=== PATIENT | male | born 1945 | race Caucasian/White ===

== ENCOUNTER 2024-01-14 15:39 | Emergency (ER) | payer BC ==
[~2024-01-14] VITALS: Ht 162.6 cm; Wt 77.0 kg
[2024-01-14 15:44] VITALS: O2SAT 100
[2024-01-14] MEDS: SODIUM CHLORIDE 0.9% 1,000 ML IV ONE (16:21)
[2024-01-14 16:32] LABS: BASOPHILS % 0.7 % (0.0-2.0); EOSINOPHILS % 1.9 % (0.0-5.0); HEMATOCRIT. 43.4 % (42.0-52.0); HEMOGLOBIN. 15.3 g/dL (14.0-18.0); LYMPHOCYTES % 17.1 % (20.0-50.0); MEAN CORPUSCULAR HEMOGLOBIN 32.3 pg (28.0-32.0); MEAN CORPUSCULAR HGB CONC 35.2 g/dL (31.0-37.0); MEAN CORPUSCULAR VOLUME 91.8 fL (80.0-94.0); MEAN PLATELET VOLUME 8.3 fl (7.4-10.4); MONOCYTES % 6.5 % (2.0-8.0); NEUTROPHILS % 73.8 % (40.0-76.0); PLATELET 183 x1000/uL (130-400); RED BLOOD CELL COUNT 4.73 mill/uL (4.7-6.1); RED CELL DISTRIBUTION WIDTH 14.4 % (11.6-14.6); WHITE BLOOD COUNT 8.1 x1000/uL (4.5-11.0)
[2024-01-14 16:38] LABS: CARBON DIOXIDE 28 mEq/L (21-32); CHLORIDE 104 mEq/L (98-107); POTASSIUM 3.9 mEq/L (3.5-5.1); SODIUM 137 mEq/L (136-145)
[2024-01-14 16:39] LABS: CALCIUM 9.1 mg/dL (8.7-10.4)
[2024-01-14 16:43] LABS: CREATININE 1.3 mg/dL (0.6-1.3); INR 0.9; PROTHROMBIN TIME 10.6 sec (9.6-11.0)
[2024-01-14 16:44] LABS: GLUCOSE 288 mg/dL (70-105); TROPONIN I HIGH SENSITIVITY 9 ng/L (3.0-53); UREA NITROGEN BLOOD 20 mg/dL (9-23)
[2024-01-14 16:45] LABS: ALANINE AMINOTRANSFERASE 13 IU/L (10-49)
[2024-01-14 16:46] LABS: ALBUMIN 3.8 g/dL (3.2-4.8); ASPARTATE AMINOTRANSFERASE 14 IU/L (<34); BILIRUBIN DIRECT 0.1 mg/dL (<=3.0); BILIRUBIN TOTAL 0.6 mg/dL (0.1-1.0); PROTEIN TOTAL 6.4 g/dL (6.0-8.3)
[2024-01-14 20:00] VITALS: BP 142/78; PULSE 60; RESP 20; TEMP 36.66960; O2SAT 97
[2024-01-15] MEDS ORDERED: IOHEXOL-300 100 ML BOTTLE ONE (02:23)
== END 2024-01-14 20:24 | disposition home or self-care (01) ==
LOC: ER 15:39 → CANBEDREQ 19:56 → ER 20:24
DX: R55 Syncope and collapse (principal); I10 Essential (primary) hypertension; Z86.73 Personal history of transient ischemic attack (TIA), and cerebral infarction without residual deficits
CPT/HCPCS: 99285; 74177; 96360; 71045; 80076; 80048; 83880; 83690; 85025; 85610; 84484; 36415; 93005; Q9967; J7030

== ENCOUNTER 2024-10-20 15:41 | Emergency (ER) | payer BC ==
[~2024-10-20] VITALS: Ht 172.7 cm; Wt 105.0 kg
[2024-10-20 15:52] VITALS: O2SAT 95
[2024-10-20 16:43] LABS: HEMATOCRIT. 42.1 % (42.0-52.0); HEMOGLOBIN. 14.2 g/dL (14.0-18.0); MEAN PLATELET VOLUME 7.9 fl (7.4-10.4); PLATELET 160 x1000/uL (130-400); RED BLOOD CELL COUNT 4.71 mill/uL (4.7-6.1); RED CELL DISTRIBUTION WIDTH 14.0 % (11.6-14.6)
[2024-10-20] MEDS: LABETALOL 5MG/ML 4ML INJ IV ONE (16:45)
[2024-10-20] MEDS: HYDROCODONE/ACETAMINOPHEN 5/325MG TABLET PO STA (16:45)
[2024-10-20 16:53] LABS: INR 1.0
[2024-10-20 16:57] LABS: CREATININE 1.3 mg/dL (0.6-1.3); UREA NITROGEN BLOOD 23 mg/dL (9-23)
[2024-10-20 16:58] LABS: TROPONIN I HIGH SENSITIVITY 7 ng/L (3.0-53)
[2024-10-20 17:05] LABS: BAND% 1.0 % (1.0-6.0); EOSINOPHILS % MANUAL 1.0 % (0.0-5.0); LYMPHOCYTES % MANUAL 7.0 % (20.0-50.0); MONOCYTES % MANUAL 5.0 % (2.0-8.0); NEUTROPHILS % MANUAL 86.0 % (45.0-75.0); PLATELET ESTIMATE NORMAL
[2024-10-20 18:28] VITALS: BP 147/70; PULSE 89; RESP 17; TEMP 36.9; O2SAT 93
== END 2024-10-20 18:47 | disposition home or self-care (01) ==
LOC: ER 15:41
DX: I16.0 Hypertensive urgency (principal); I10 Essential (primary) hypertension; E11.65 Type 2 diabetes mellitus with hyperglycemia; G93.89 Other specified disorders of brain; Z86.73 Personal history of transient ischemic attack (TIA), and cerebral infarction without residual deficits
CPT/HCPCS: 99285; 96374; 70450; 71045; 80048; 85025; 85610; 84484; 36415; 93005; J3490